=== PATIENT | male | born 1995 | race Caucasian/White ===

== ENCOUNTER 2022-02-26 10:47 | Emergency (ER) | payer BC ==
[2022-02-26] MEDS ORDERED: Ketorolac 30 MG/ML SDV IM ONE (11:27)
== END 2022-02-26 12:00 | disposition home or self-care (01) ==
LOC: FB.ED 10:47
DX: K04.7 Periapical abscess without sinus (principal); F17.210 Nicotine dependence, cigarettes, uncomplicated
CPT/HCPCS: 96372; 99281; 99282; J1885

== ENCOUNTER 2024-01-14 17:54 | Emergency (ER) | payer SELFPAY ==
[2024-01-14] MEDS: Amoxicillin 500 MG Cap PO ONE (20:21)
== END 2024-01-14 20:28 | disposition home or self-care (01) ==
LOC: FB.ED 17:54
DX: K04.7 Periapical abscess without sinus (principal); K02.9 Dental caries, unspecified; F17.210 Nicotine dependence, cigarettes, uncomplicated
CPT/HCPCS: 99282; A9270; 99283

== ENCOUNTER 2024-09-03 00:03 | Emergency (ER) | payer OTHER | END 2024-09-03 00:27 | LOC: FB.ED 00:03 | DX: F10.120 Alcohol abuse with intoxication, uncomplicated (principal); F17.210 Nicotine dependence, cigarettes, uncomplicated; Z79.899 Other long term (current) drug therapy; Y90.9 Presence of alcohol in blood, level not specified | CPT/HCPCS: 99283 ==